=== PATIENT | female | born 1960 | race Caucasian/White ===

== ENCOUNTER 2022-01-07 22:00 | Emergency (ER) | payer MEDICAID, SELFPAY ==
[2022-01-07 22:00] VITALS: BP 190/111; PULSE 90; RESP 16; TEMP 36.4; BMI 27.7
--- NOTE | 2022-01-07 22:21 | EDS_ITS ---
HPI History of Present Illness Chief Complaint: Lower Extremity Injury Informant: patient Narrative Narrative: Patient is a 61-year-old female with history of migraines and hypertension presenting with left ankle injury. Last night she was taking the trash out was holding trash bags in both arms and was walking on the porch. Her right foot hit the table and this caused her to lose her balance. She landed on her knees and twisted her left ankle. She is had mild pain of her bilateral knees but significant swelling and discomfort of her left ankle today. She took ibuprofen and elevated her ankle last night but had to work today. She wanted to make sure it was not broken so she came to the ER. Has no other complaints at this time. No associated numbness or tingling. Did not hit her head. No other injuries at this time. Is not on any blood thinners. [facility] Medical History (Updated 01/07/22 @ 23:[address] Lucero Jauregui DO) Hypertension Home Medications etodolac 300 mg capsule 300 mg PO TIDCM ##30 08/13/16 [Rx Last Taken Unknown] Allergy/AdvReac Type Severity Reaction Status Date / Time ketorolac tromethamine AdvReac Vomiting Verified 08/13/16 17:08 [From Toradol] tramadol AdvReac Vomiting Verified 08/13/16 17:08 Social History Smoking Status: Current every day smoker tobacco type: cigarettes ROS ROS ED Constitutional Constitutional ED: Denies chills or fever(s) Eyes Eyes: Denies change in vision ENT ENT ED: Denies sore throat Cardiovascular Cardiovascular: Denies chest pain or palpitations Respiratory/Chest Respiratory/Chest: Denies cough or dyspnea Gastrointestinal Gastrointestinal: Denies nausea Musculoskeletal Musculoskeletal: Reports other Details: left ankle pain and swelling, bilateral knee pain Integumentary Denies Abrasions or rash Neurologic Neurologic: Denies headache(s), paresthesias or weakness Psychiatric Psychiatric: Denies anxiety Hematologic/Lymphatic Hematologic/Lymphatic: Denies easy bleeding or easy bruising EXAM Physical Exam Const Vital Signs: 01/07/22 22:00 01/07/22 22:00 Temperature 97.5 F L 97.5 F L Temperature Source Temporal Temporal Pulse Rate 90 90 Respiratory Rate 16 16 Blood Pressure 190/111 H 190/111 H Blood Pressure Mean 137 137 Positive well nourished and well developed General Appearance ED: well developed and NAD HEENT normocephalic and atraumatic Neck full ROM and supple Chest Wall inspection of chest normal and palpation of chest normal Resp normal respiratory effort and no retractions Cardio regular rate and regular rhythm Cardio Narrative: 2+ DP pulses GI Negative for non-distended Extremity full ROM Extremity Narrative: edema of lateral left ankle. TTP left medial malleolus. Normal Garcia test. Range of motion of the ankle preserved. No fibular head tenderness. Mild bilateral knee tenderness but no effusion or abnormalities with range of motion appreciated. General Extremety ED: Yes edema General Extremity: edema Neuro oriented x3 and moves all extremities Neuro Narrative: Subjective paresthesia over area of edema of the left lateral ankle Motor Exam: strength 5/5 throughout; Negative for general weakness Psych mental status grossly normal Skin no wounds Skin Narrative: Area of erythema of bilateral anterior knees consistent with falling directly onto knees. MDM MDM MDM Narrative Medical decision making narrative: Patient is evaluated for left ankle pain and swelling. We will obtain an x-ray to rule out fracture. Patient is given Motrin in the ER. Ankle x-ray inter by myself as well as radiology does not show any acute fracture. Patient does have soft tissue swelling. Patient is placed in an air stirrup and given crutches. Counseled on return precautions. Encouraged follow-up with primary care doctor. Counseled on RICE therapy. Radiography Diagnostic Testing: Clinical Impression(s) from Imaging Studies Ankle X-Ray 01/07/22 22:37 IMPRESSION: Soft tissue swelling without fracture or dislocation. Electronically Signed: Naldo Zhang DO at 22:55 EST Reading Location ID and State: [address] [place] [address] Tel [phone], Service support , Discharge Plan Triage Chief Complaint: Lower Extremity Injury ED Provider: Lucero Jauregui Dx/Rx/DC Orders Clinical Impression: Sprain of ankle, left, Ankle pain, left, Fall, Contusion of knee Instructions: ED Crutch Walking, ED Ankle Sprain (Adult) Prescriptions: No Action etodolac 300 MG capsule 300 mg PO TIDCM Qty: 30 0RF Rx Instructions: with food Primary Care Provider: Care Physician,No Primary Referrals: Kevin Castro MD [Non-Staff] - Disposition Disposition: Home, Self Care Discharge Date/Time: 01/08/22 00:11
[2022-01-07] MEDS: Ibuprofen 200 MG Tablet 400 MG PO (22:26)
--- NOTE | 2022-01-07 22:37 | RAD_ITS ---
STUDY: X-RAY - LEFT ANKLE REASON FOR EXAM: Female, 61 years old. Injury. Pain. TECHNIQUE: 4 view(s) of the ankle. COMPARISON: None. FINDINGS: Normal visualized distal tibia and fibula. Normal medial and lateral malleoli. Normal tibiotalar articulation and ankle mortise. Normal visualized talus. There is an enthesophyte at the insertion of Achilles tendon on otherwise normal calcaneus. The visualized subtalar, talonavicular, calcaneocuboid and tarsal articulations are normal. Anterolateral soft tissue swelling suggesting sprain. RAD/Ankle min 3 Views IMPRESSION: Soft tissue swelling without fracture or dislocation. Electronically Signed: Naldo Zhang DO at 22:55 EST ,
== END 2022-01-08 00:11 | disposition home or self-care (01) ==
PROVIDERS: Emergency Provider Emergency Medicine; Visit Provider Emergency Medicine
DX: S93.402A Sprain of unspecified ligament of left ankle, initial encounter (principal); S80.02XA Contusion of left knee, initial encounter; I10 Essential (primary) hypertension; F17.210 Nicotine dependence, cigarettes, uncomplicated; M79.89 Other specified soft tissue disorders; W19.XXXA Unspecified fall, initial encounter
CPT/HCPCS: 73610; 99284

== ENCOUNTER 2023-09-02 15:41 | Emergency (ER) | payer MEDICAID, SELFPAY ==
[2023-09-02 15:43] VITALS: BP 223/123; PULSE 50; RESP 18; TEMP 36.4; O2SAT 96; BMI 29.0
--- NOTE | 2023-09-02 15:59 | EKG12_ITS ---
Test Reason : HTN Blood Pressure : / mmHG Vent. Rate : 076 BPM Atrial Rate : 076 BPM P-R Int : 166 ms QRS Dur : 088 ms QT Int : 404 ms P-R-T Axes : 049 014 021 degrees QTc Int : 454 ms Normal sinus rhythm Normal ECG Confirmed by JOSÉ MANUEL PEREZ, GARO ([id number]), assistant film editor HERNANDO HERNANDEZ ([id number]) on 09/05/2023 2:15:37 PM Referred By: Confirmed By:JERSON GEORGES MD
--- NOTE | 2023-09-02 15:59 | CT_ITS ---
STUDY: CT BRAIN WITHOUT CONTRAST REASON FOR EXAM: Female, 62 years old. headache RADIATION DOSAGE (If Supplied By Facility): CTDIvol = ( 44.99 ) mGy, DLP = ( 829.85 ) mGycm TECHNIQUE: Transaxial CT imaging of the brain was performed without administration of intravenous contrast material. Individualized dose optimization techniques were used for this CT. COMPARISON: No relevant priors. FINDINGS: Normal soft tissue structures. Normal calvarium. Calcific plaquing of the cavernous carotids Normal size ventricles and extra-axial spaces for the patient''s age. Normal white matter tracts of the cerebral hemispheres. Normal basal ganglia and thalami. Normal brainstem. Normal cerebellum. There is no intracranial hemorrhage. There are no findings of an acute ischemic infarction. Small mucous retention cyst or polyp in the right ethmoid sinus CT/Brain/Head without Contrast IMPRESSION: Minor periventricular white matter changes likely due to chronic small vessel ischemic changes.. No evidence for obstructive hydrocephalus mass or acute bleed Electronically Signed: Kevin Cope MD at 17:18 EDT Reading Location ID and State: [facility] / [place] Tel , Service support ,
--- NOTE | 2023-09-02 16:00 | EX.ED.DYSGE1 ---
HPI History of Present Illness Chief Complaint: Hypertension Narrative Narrative: 62-year-old female presenting with chief complaint of left ankle pain. She states she has had this for about a year. She was seen in [place] ER for this. She had an x-ray done which was negative. She was put in a Aircast and states it helped for some time. She never followed up with anybody. She also states that she does not have a primary care provider. This is because her the nurse practitioner she was seeing wanted her to do lab work and she did not do it in a timely manner so she was discharged from the practice. Patient has not been on her blood pressure medications for about a year. She states she is getting headaches almost every other night. She does have a history of migraines. She also states 2 days ago she had chest pain. She states this only lasted for short while. She did not get lightheaded but did get nauseous with it. Denies any history of cardiac problems. [facility] Medical History (Updated 09/02/23 @ 17:[address] Ignacio Mccracken, DO) Smoker Migraines Hypertension Home Medications ?Medication ?Instructions ?Recorded ?Last Taken ?Type etodolac 300 mg capsule 300 mg PO TIDCM ##30 08/13/16 Unknown Rx amlodipine 5 mg tablet 5 mg PO DAILY #30 tabs 09/02/23 Unknown Rx hydrochlorothiazide 12.5 mg capsule 12.5 mg PO DAILY #30 caps 09/02/23 Unknown Rx lisinopril 40 mg tablet 40 mg PO DAILY #30 tabs 09/02/23 Unknown Rx metoprolol tartrate 25 mg tablet 25 mg PO BID #60 tabs 09/02/23 Unknown Rx Allergy/AdvReac Type Severity Reaction Status Date / Time ketorolac tromethamine (From AdvReac Vomiting Verified 09/02/23 15:43 Toradol) tramadol AdvReac Vomiting Verified 09/02/23 15:43 Social History Smoking Status: Current every day smoker tobacco type: cigarettes EXAM Physical Exam Const Vital Signs: 09/02/23 15:43 09/02/23 15:49 09/02/23 16:18 Temperature 97.6 F L Temperature Source Temporal Pulse Rate 50 L 81 Respiratory Rate 18 Respiratory Effort Normal Non-Labored Blood Pressure 223/123 H 238/122 H Blood Pressure Mean 156 160 Pulse Ox 96 Oxygen Delivery Method Room Air 09/02/23 17:38 Temperature 97.6 F L Temperature Source Pulse Rate 69 Respiratory Rate 14 Respiratory Effort Blood Pressure 149/86 H Blood Pressure Mean 107 Pulse Ox 95 Oxygen Delivery Method MDM MDM MDM Narrative Medical decision making narrative: Patient presenting with history of chest pain a couple days ago. She is hypertensive and has not been taking her medicines. She states it has been a year but it looks like it has been closer to 2. Is also having headaches. Differential includes ACS, pneumonia, hypertensive emergency, intracranial hemorrhage, dehydration, anemia, electrolyte abnormalities, renal failure. CBC will be obtained to assess white blood cell count, hemoglobin, platelets. BMP to assess renal function, electrolytes, glucose. High-sensitivity troponin and EKG to assess for ischemia/dysrhythmia. Chest x-ray to rule out pneumonia. Considered PE however patient is PERC negative. Also considered aortic dissection given her high blood pressure although she is was not having ripping or tearing pain and does not have any pain currently. Patient medicated with 20 mg labetalol. Her blood pressures come down to 157/91. CBC shows normal white blood cell count of 10.5. 0.2. Platelets are normal at 288. Renal function is normal. Potassium slightly low at 3.3. AST 44, ALT 63, alkaline phosphatase 130. Patient is not having abdominal pain. High-sensitivity troponin is 4. EKG interpreted by myself shows a sinus rhythm at 76 bpm ischemic change or dysrhythmia. Chest x-ray interpreted by myself shows no acute cardiopulmonary process. Radiologist interpretation agrees. CT of the brain is negative for acute findings. Left ankle x-ray interpreted by myself shows no acute fracture or subluxation. The radiologist interprets this as chronic degenerative changes. Given this I feel the patient is stable for discharge home since her blood pressures responded. I gave her a follow-up physician. As far as her ankle does ice, rest, elevation ibuprofen and Tylenol. Impression: 1. Left ankle pain 2. Hypertension 3. Medical noncompliance Lab Data Attestation: I reviewed the patient's lab results. Labs: Laboratory Results - last 24 hr 09/02/23 16:18 WBC 10.5 RBC 6.13 H Hgb 17.2 H Hct 50.2 H MCV 81.9 MCH 28.1 MCHC 34.3 RDW Std Deviation 37.5 RDW Coeff of Yun 12.7 Plt Count 288 MPV 9.9 Immature Gran % (Auto) 0.300 Neut % (Auto) 48.6 Lymph % (Auto) 40.0 [place] % (Auto) 8.2 Eos % (Auto) 1.8 Baso % (Auto) 1.1 H Absolute Neuts (auto) 5.1 Absolute Lymphs (auto) 4.19 Nucleated RBC % 0 Sodium 138 Potassium 3.3 L Chloride 107 Carbon Dioxide 25.0 Anion Gap 6 BUN 11 Creatinine 0.83 Estim Creat Clear Calc 75.77 Est GFR (MDRD) Af Amer 90 Est GFR (MDRD) Non-Af 74 BUN/Creatinine Ratio 13.3 Glucose 220 H Calcium 9.3 Total Bilirubin 0.60 AST 44 H ALT 63 H Alkaline Phosphatase 130 H Troponin I High Sens 9 Total Protein 8.6 H Albumin 3.7 Globulin 4.9 H Albumin/Globulin Ratio 0.8 L Radiography Diagnostic Testing: Clinical Impression(s) from Imaging Studies Brain CT 09/02/23 15:59 IMPRESSION: Minor periventricular white matter changes likely due to chronic small vessel ischemic changes.. No evidence for obstructive hydrocephalus mass or acute bleed Electronically Signed: Kevin Cope MD at 17:18 EDT Reading Location ID and State: [facility] / [place] Tel [phone], Service support , Ankle X-Ray 09/02/23 16:45 IMPRESSION: Probable old posttraumatic and degenerative changes of the right medial tibiotalar joint. No evidence for acute fracture or dislocation Electronically Signed: Kevin Cope MD at 17:21 EDT Reading Location ID and State: [facility] / [place] Tel [phone], Service support , Chest X-Ray 09/02/23 16:45 IMPRESSION: No acute cardiopulmonary pathology Electronically Signed: Kevin Cope MD at 17:22 EDT , Discharge Plan Triage Chief Complaint: Hypertension Other Complaint: Lower Extremity Injury ED Provider: Ignacio Mccracken Dx/Rx/DC Orders Clinical Impression: Essential hypertension Instructions: ED Hypertension, Established Prescriptions: New lisinopril 40 mg tablet 40 mg PO DAILY Qty: 30 0RF hydrochlorothiazide 12.5 mg capsule 12.5 mg PO DAILY Qty: 30 0RF amlodipine 5 mg tablet 5 mg PO DAILY Qty: 30 0RF metoprolol tartrate 25 mg tablet 25 mg PO BID Qty: 60 0RF No Action etodolac 300 MG capsule 300 mg PO TIDCM Qty: 30 0RF Rx Instructions: with food Primary Care Provider: Care Physician,No Primary Referrals: Yair Oliva MD [Med Staff - Lookback Coordinator] - 3-5 Days Care Physician,No Primary [Primary Care Provider] - Print Language: Norwegian Disposition Disposition: Home, Self Care Discharge Date/Time: 09/02/23 17:44
[2023-09-02 16:18] VITALS: BP 238/122; PULSE 81
[2023-09-02] MEDS: Labetalol (Prefilled) 20 MG/4 ML IV (16:19)
[2023-09-02 16:28] LABS: Absolute Lymphocyte Count 4.19 X10^3/uL (0.83-4.51); Absolute Neutrophil Count 5.1 X10^3/uL (2.0-7.7); Basophil# 0.12 X10^3/uL; Basophil% 1.1 % (0-1); Eosinophil# 0.19 X10^3/uL; Eosinophils% 1.8 % (0-5); Hematocrit 50.2 % (37-47); Hemoglobin 17.2 g/dL (12.0-15.0); Lymphocyte # 4.19 X10^3/ul (0.83-4.51); Mean Corp Hgb Conc 34.3 g/dL (32-36); Mean Corpuscular Hgb 28.1 pg (27.0-32.0); Mean Corpuscular Volume 81.9 fL (81-99); Mean Platelet Vol. 9.9 fl (6.2-12.0); Monocyte# 0.86 X10^3/uL; Monocyte% 8.2 % (0-10); NRBC Flagged by Analyzer 0 % (0-5); Neutrophil # 5.09 X10^3/uL (2.7-7.7); Neutrophil % 48.6 % (47-70); Platelet Count 288 K/mm3 (150-450); RBC Distribution Width CV 12.7 % (11.6-14.6); RBC Distribution Width SD 37.5 fl (35.1-43.9); Red Blood Count 6.13 M/mm3 (4.2-5.4); White Blood Count 10.5 K/mm3 (4.4-11.0)
--- NOTE | 2023-09-02 16:45 | RAD_ITS ---
STUDY: X-RAY - LEFT ANKLE REASON FOR EXAM: Female, 62 years old. pain TECHNIQUE: 3 view(s) of the ankle. COMPARISON: None. FINDINGS: Normal visualized distal tibia and fibula. Normal medial and lateral malleoli. Probable old posttraumatic and degenerative changes of the medial tibiotalar joint. Normal visualized talus and calcaneus. The visualized subtalar, talonavicular, calcaneocuboid and tarsal articulations are normal. The soft tissue structures are unremarkable. RAD/Ankle min 3 Views IMPRESSION: Probable old posttraumatic and degenerative changes of the right medial tibiotalar joint. No evidence for acute fracture or dislocation Electronically Signed: Kevin Cope MD at 17:21 EDT ,
--- NOTE | 2023-09-02 16:45 | RAD_ITS ---
STUDY: X-RAY CHEST REASON FOR EXAM: Female, 62 years old. chest pain TECHNIQUE: AP portable COMPARISON: None. FINDINGS: The lungs are clear and expanded. There is no demonstrated pleural abnormality. Normal size heart. Normal mediastinum and kaycee. Normal visualized pulmonary arteries. Mildly calcified aortic arch and descending thoracic aorta. Dorsal spine demonstrates degenerative changes. Normal visualized ribs, clavicles, and shoulders. There is no demonstrated abnormality of the visualized soft tissue structures of the upper abdomen. RAD/Chest 1 View (Portable) IMPRESSION: No acute cardiopulmonary pathology Electronically Signed: Kevin Cope MD at 17:22 EDT ,
[2023-09-02 16:47] LABS: ALB/GLOB Ratio 0.8 RATIO (0.9-2.4); AST(SGOT) 44 U/L (15-37); Alanine Aminotransfer ALT/SGPT 63 U/L (13-56); Albumin, Serum 3.7 g/dL (3.2-5.0); Alkaline Phosphatase 130 U/L (45-117); Anion Gap 6 (5-15); BUN 11 mg/dL (7-18); BUN/Creat Ratio 13.3 RATIO (10-20); Calcium,Total 9.3 mg/dL (8.5-10.1); Chloride 107 mmol/L (98-107); Creatinine, Serum 0.83 mg/dL (0.55-1.02); EST Glomerular Filtration Rate 74 mL/min (>60); Est Glom Filt Rate - Afr Amer 90 mL/min (>60); Estimated Creatinine Clearance 75.77 ml/min; Globulin 4.9 g/dL (2.2-4.2); Glucose 220 mg/dL (74-106); Potassium 3.3 mmol/L (3.5-5.1); Protein, Total 8.6 g/dL (6.4-8.2); Sodium Level 138 mmol/L (136-145); Troponin-I HS 9 pg/mL (3.0-54.0)
[2023-09-02 17:38] VITALS: BP 149/86; PULSE 69; RESP 14; TEMP 36.4; O2SAT 95
== END 2023-09-02 17:44 | disposition home or self-care (01) ==
PROVIDERS: Emergency Provider Student in an Organized Health Care Education/Training Program; Visit Provider Student in an Organized Health Care Education/Training Program
DX: I10 Essential (primary) hypertension (principal); R51.9 Headache, unspecified; F17.210 Nicotine dependence, cigarettes, uncomplicated; Z91.199 Patient's noncompliance with other medical treatment and regimen due to unspecified reason; M25.572 Pain in left ankle and joints of left foot; Z79.899 Other long term (current) drug therapy
CPT/HCPCS: 70450; 71045; 73610; 80053; 84484; 85025; 93005; 96374; 99285; J7050